=== PATIENT | female | born 1995 | race Native Hawaiian/Other Pacific Islander ===

== ENCOUNTER 2023-05-24 05:53 | Outpatient (CLI) | payer MEDICAID ==
[~2023-05-24] VITALS: Ht 162.6 cm; Wt 73.6 kg
[2023-05-24] MEDS ORDERED: PNV-9 PO (16:19)
== END 2023-05-24 16:39 | disposition home or self-care (01) ==
LOC: PREOP 05:53
PROVIDERS: ATTEND Obstetrics & Gynecology
DX: Z01.818 Encounter for other preprocedural examination (principal)

== ENCOUNTER 2023-05-31 05:36 | Inpatient (IN) | payer MEDICAID ==
[~2023-05-31] VITALS: Ht 160 cm; Wt 75.5 kg
[2023-05-31] VITALS (11 sets, daily range): BP systolic 100–124; BP diastolic 55–78
[~2023-05-31 05:36] MED LIST: PNV-9 PO
[2023-05-31] MEDS ORDERED: ceFAZolin INJECTION 2,000 MG in NS (IVPB) 50 ML 50 ML IV ONE (05:45)
[2023-05-31] MEDS ORDERED: METOCLOPRAMIDE INJ 10 MG/2 ML IV ONE (06:00)
[2023-05-31] MEDS ORDERED: CITRIC ACID/SODIUM CITRATE ORAL SOLN 30 ML PO ONE (06:00)
[2023-05-31] MEDS ORDERED: LACTATED RINGERS 1,000 ML 1,000 ML IV PRN ×2 (06:00)
[2023-05-31] MEDS ORDERED: FAMOTIDINE INJ 20MG/2ML VIAL IV ONE (06:00)
[2023-05-31] MEDS ORDERED: D5 LR 1,000 ML IV SOLN 1,000 ML IV SCH (06:00)
[2023-05-31] MEDS ORDERED: LACTATED RINGERS 1,000 ML 500 ML IV PRN (06:00)
[2023-05-31 06:40] LABS: ALBUMIN 3.1 GM/DL (3.2-4.5); BASOPHILS % (AUTO) 1 % (0-10); EOSINOPHILS # (AUTO) 0.4 10^3/uL (0.0-0.3); EOSINOPHILS % (AUTO) 7 % (0-10); HEMATOCRIT 35 % (35-52); HEMOGLOBIN 11.9 g/dL (11.5-16.0); LYMPHOCYTES # (AUTO) 1.4 10^3/uL (1.0-4.0); LYMPHOCYTES % (AUTO) 24 % (12-44); MEAN CORPUSCULAR HEMOGLOBIN 30 pg (25-34); MEAN CORPUSCULAR HGB CONC 34 g/dL (32-36); MEAN CORPUSCULAR VOLUME 89 fL (80-99); MEAN PLATELET VOLUME 9.2 fL (9.0-12.2); MONOCYTES # (AUTO) 0.4 10^3/uL (0.0-1.0); MONOCYTES % (AUTO) 7 % (0-12); NEUTROPHILS # (AUTO) 3.5 10^3/uL (1.8-7.8); NEUTROPHILS % (AUTO) 60 % (42-75); PLATELET COUNT 205 10^3/uL (130-400); POTASSIUM 3.8 MMOL/L (3.6-5.0); WHITE BLOOD COUNT 5.9 10^3/uL (4.3-11.0)
[2023-05-31 06:41] LABS: CALCIUM 8.1 MG/DL (8.5-10.1)
[2023-05-31 06:42] LABS: TOTAL PROTEIN 6.7 GM/DL (6.4-8.2)
[2023-05-31 06:44] LABS: BILIRUBIN,TOTAL 0.3 MG/DL (0.1-1.0)
[2023-05-31 06:46] LABS: CREATININE SERUM 0.61 MG/DL (0.60-1.30)
[2023-05-31] MEDS ORDERED: fentaNYL INJECTION 100 MCG/2 ML VIAL ONE (07:02)
--- NOTE | 2023-05-31 07:02 | History & Physical-OB ---
OB - Chief Complaint & HPI Date/Time Date of Admission: Date of Admission: May 31, 2023 at 05:36 Date seen by a Provider: May 31, 2023 Time Seen by a Provider: 07:01 Chief Complaint/History OB-Reason for Admission/Chief: Section Hx : 3 Hx Para: 2 Expected Date of Delivery: Jun 07, 2023 Gestational Age in Weeks: 39 Gestational Age in Days: 0 Indication for : desires repeat Admission Nurse Assessment Rev: Yes Allergies and Home Medications Allergies Coded Allergies: No Known Drug Allergies (Unverified , 05/24/23) Patient Home Medication List Home Medication List Reviewed: Yes Pnv 119/Iron Fum/Folic Acid ( 19 Tablet) 29 Mg Iron-1 Mg Tablet, 1 EACH PO DAILY, (Reported) Entered as Reported by: Vesta Howe on 05/24/23 1619 OB - History Hx of Present Care: Yes Ultrasounds: Normal mid trimester US Obstetrical Complications: None Medical Complications: None Patient Past Medical History nc Immunizations Influenza Vaccine Up-to-Date: No; Not Current Hepatitis A: No Hepatitis B: No OB - Admission Exam Physical Exam Vitals: Vital Signs 05/31/23 06:01 Temp 36.7 Pulse 77 Resp 20 Pulse Ox 100 O2 Delivery Room Air HEENT: NCAT Heart: Rhythm Normal Lungs: Clear Abdomen: Gravid Heart Rate: 130's Accelerations: Accelerations Present Decelerations: No Decelerations Short Term Variability: Present Labs Laboratory Tests Test 05/31/23 06:05 Range/Units White Blood Count 5.9 4.3-11.0 10^3/uL Red Blood Count 3.99 3.80-5.11 10^6/uL Hemoglobin 11.9 11.5-16.0 g/dL Hematocrit 35 35-52 % Mean Corpuscular Volume 89 80-99 fL Mean Corpuscular Hemoglobin 30 25-34 pg Mean Corpuscular Hemoglobin Concent 34 32-36 g/dL Red Cell Distribution Width 12.6 10.0-14.5 % Platelet Count 205 130-400 10^3/uL Mean Platelet Volume 9.2 9.0-12.2 fL Immature Granulocyte % (Auto) 1 % Neutrophils (%) (Auto) 60 42-75 % Lymphocytes (%) (Auto) 24 12-44 % Monocytes (%) (Auto) 7 0-12 % Eosinophils (%) (Auto) 7 0-10 % Basophils (%) (Auto) 1 0-10 % Neutrophils # (Auto) 3.5 1.8-7.8 10^3/uL Lymphocytes # (Auto) 1.4 1.0-4.0 10^3/uL Monocytes # (Auto) 0.4 0.0-1.0 10^3/uL Eosinophils # (Auto) 0.4 H 0.0-0.3 10^3/uL Basophils # (Auto) 0.0 0.0-0.1 10^3/uL Immature Granulocyte # (Auto) 0.1 0.0-0.1 10^3/uL Sodium Level 136 135-145 MMOL/L Potassium Level 3.8 3.6-5.0 MMOL/L Chloride Level 110 H 98-107 MMOL/L Carbon Dioxide Level 18 L 21-32 MMOL/L Anion Gap 8 5-14 MMOL/L Blood Urea Nitrogen 7 7-18 MG/DL Creatinine 0.61 0.60-1.30 MG/DL Estimat Glomerular Filtration Rate 124 BUN/Creatinine Ratio 11 Glucose Level 74 70-105 MG/DL Calcium Level 8.1 L 8.5-10.1 MG/DL Corrected Calcium 8.8 8.5-10.1 MG/DL Total Bilirubin 0.3 0.1-1.0 MG/DL Aspartate Amino Transf (AST/SGOT) 19 5-34 U/L Alanine Aminotransferase (ALT/SGPT) 16 0-55 U/L Alkaline Phosphatase 137 H 40-136 U/L Total Protein 6.7 6.4-8.2 GM/DL Albumin 3.1 L 3.2-4.5 GM/DL OB - Assessment/Plan/Diagnosis Assessment Assessment: section Admission Dx 27 yo @ 39 weeks Previous Admission Status: Inpatient Order (span 2 midnights) Reason for Inpatient Admission: RCS Plan Plan: Section ADNELLE JOHNSON DO May 31, 2023 07:02
--- NOTE | 2023-05-31 07:08 | Discharge Inst-Women's Service ---
Discharge Inst-Women's Serv Depart Medication/Instructions New, Converted or Re-Newed RX: Transmitted to Pharmacy Final Diagnosis POD 2 RLTCS Problems Reviewed?: Yes Consults/Follow Up Additional Follow Up: Yes Orders/Referrals Dr. Sesay in 7-10 days and in [address] Gomez Activity Activity: Activity as Tolerated Driving Instructions: No Driving for 1 Week NO SMOKING: NO SMOKING Nothing Inside Vagina: No Douching, No [place], No Tampons Diet Discharge Diet: No Restrictions Symptoms to Report to : Bleeding Excessive, Pain Increased, Fever Over 101 Degrees F, Vaginal Bleeding Increase, Questions/Concerns For Any Problems or Questions: Contact Your Physician Skin/Wound Care Infection Signs and Symptoms: Increased Redness, Foul Odor of Wound, Increased Drainage, Skin Itchy or Has a Rash, Increased Swelling, Temperature Above 101 F Operative Area Clean and Dry: Keep Incision Clean/Dry Stitches/Gloria/Dermabond: Dermabond, Care of Stitches Bathing Instructions: DANELLE Justice DO May 31, 2023 07:08
[2023-05-31] MEDS ORDERED: IBUP-844 PO (07:09)
[2023-05-31] MEDS ORDERED: DOCU100C37 PO (07:09)
[2023-05-31] MEDS ORDERED: ACHD5005 PO (07:09)
[2023-05-31] MEDS ORDERED: MEASLES, MUMPS, RUBELLA VACCINE (MMR) SC SCH (07:15)
[2023-05-31] MEDS ORDERED: NALOXONE 0.4 MG/ML 1 ML VIAL IV PRN ×2 (07:15→09:15)
[2023-05-31] MEDS ORDERED: Tetanus/Diphtheria/Pertussis (Acell) ADULT Vaccine 0.5 ML IM SCH (07:15)
[2023-05-31] MEDS ORDERED: ONDANSETRON INJECTION 4 MG/2 ML (SDV) IVP PRN (07:15)
[2023-05-31] MEDS ORDERED: [UNRECOGNIZED DRUG - OTHER] ONE (07:51)
[2023-05-31] MEDS ORDERED: DEXT ONE (07:51)
[2023-05-31] MEDS: OXYTOCIN DRIP PRE-MIX 500 ML IV SCH ×2 (08:00→08:45)
[2023-05-31] MEDS ORDERED: ROPIVACAINE 5 MG/ML 30ML VIAL ONE (08:03)
[2023-05-31] MEDS ORDERED: OXYTOCIN DRIP PRE-MIX 500 ML IV ONE (08:08)
[2023-05-31] MEDS ORDERED: PHENYLEPHRINE 100 MCG/ML 10 ML (ANESTHESIA) SYR ONE (08:08)
[2023-05-31] MEDS ORDERED: ONDANSETRON INJECTION 4 MG/2 ML (SDV) ONE (08:30)
[2023-05-31] MEDS ORDERED: diphenhydrAMINE INJ 50 MG/ML VIAL IV PRN (09:15)
[2023-05-31] MEDS ORDERED: ONDANSETRON INJECTION 4 MG/2 ML (SDV) IV PRN (09:15)
[2023-05-31] MEDS: KETOROLAC INJ 30 MG/ML VIAL IV SCH ×3 (09:20→23:38)
[2023-05-31] MEDS: HYDROcodone/ACETAMINOPHEN 5 MG/325 MG TABLET PO PRN ×2 (11:45→22:17)
[2023-05-31] MEDS ORDERED: CATHETER FLUSH 10 ML SYR IV SCH (14:00)
--- NOTE | 2023-05-31 14:29 | OPERATIVE REPORT ---
PREOPERATIVE DIAGNOSES: 1. A 27-year-old at 39 weeks' gestation. 2. Previous section. POSTOPERATIVE DIAGNOSES: 1. A 27-year-old at 39 weeks' gestation. 2. Previous section. PROCEDURE: Repeat low transverse section. SURGEON: Aaron Johnson DO ANESTHESIA: spinal. ESTIMATED BLOOD LOSS: 500 mL URINE OUTPUT: 250 mL clear at the end of the procedure. FLUIDS: 1000 mL lactated Ringer's solution. FINDINGS: A live male weighing 7 pounds 5 ounces, Apgars of 8 and 9. Grossly normal appearing uterus, bilateral fallopian tubes and ovaries. SPECIMEN SENT: None. INDICATIONS FOR PROCEDURE: This is a 27-year-old female. The patient had sought care with Dr. Gomez at the [facility]. She denied any concerns with her . None were reported in her labs other than need for repeat . Risks of procedure discussed with the patient in detail including risk of bleeding, infection, damage in surrounding structures including but not limited to bowel, bladder, ureter, kidneys, possible need for reoperation, postoperative complications that may occur recovery timeframe, risk from anesthesia and even . After everything was discussed with the patient in detail, she was agreeable to proceed. Consent was obtained, the patient was taken to the operating room. OPERATIVE REPORT IN DETAIL: Once in the operating room, a spinal analgesia was administered and found to be adequate, was placed in supine position with leftward tilt, prepped and draped in normal sterile fashion. A timeout was performed. Anesthesia was tested. I then make a Pfannenstiel skin incision through previous existing scar using knife and carried down to the underlying fascia using Bovie cautery. The fascial incision extended laterally using Bovie cautery. Superior aspect of the fascial incision was then grasped with James clamps, tented up and dissected off the underlying rectus muscles. The inferior aspect of the fascial incision was then grasped with James clamps, tented up and dissected off the underlying rectus muscles. Rectus muscles were dissected down the midline using sharp dissection, which exposed the peritoneum, which I entered bluntly, extended using blunt traction. Heladio ring retractor was placed in the peritoneal incision, which offers excellent lateral sidewall retraction. I identified the lower uterine segment was found to be thinned out and make a low transverse incision to the vesicouterine peritoneum and bluntly dissected off the lower uterine segment, creating a bladder flap. I then proceeded my myotomy until membranes were visualized, at which point I extended uterine incision laterally and superiorly using bandage scissors. Amniotomy was performed in the process of doing this, clear fluid was noted. The infant was found in the vertex presentation. With gentle fundal pressure, the infant's head elevated up the incision where delivered through the incision, the nares and oropharynx were bulb suctioned. Anterior and posterior shoulders were delivered. Infant was brought to the operative field where cord was duly clamped and cut and infant was handed off to waiting nurses in attendance. Cord blood was collected. Three-vessel cord intact placenta was delivered spontaneously thereafter. IV Pitocin was initiated to facilitate uterine contraction. Uterine fundus confirmed by manual massage. The uterus was then exteriorized and cleared of all endometrial clots and debris. I then proceeded with closing the uterine incision using 0 Vicryl suture in a running locked fashion. Second layer of imbricating 0 Monocryl was placed. Excellent hemostasis was noted after doing this. I then placed the uterus back and copiously irrigated the pelvis using normal saline. Once again, there was no active bleeding noted from any of my dissection planes. I placed Interceed antiadhesive over my low transverse incision. I removed the Heladio retractor and then proceeded with closing the peritoneum using 3-0 Vicryl suture in a running fashion. Rectus muscles were reapproximated using 3-0 Vicryl suture interrupted fashion. The fascia was reapproximated using 0 Vicryl suture in a running fashion and the skin reapproximated using 4-0 Monocryl in running subcuticular. Dermabond was applied to incision and sterile dressing with adhesive white tape. The patient tolerated the procedure well and was taken to recovery area in stable condition. Lap and sponge counts were correct at the end of the procedure. Instrument counts correct as well. Two grams of Ancef were given preoperatively for infection prophylaxis. Job ID: [id number] DocumentID: [id number] Dictated Date: 05/31/2023 08:33:55 Design Consultant Date: 05/31/2023 14:27:00 Dictated By: AARON JOHNSON DO
[2023-05-31] MEDS: DOCUSATE SODIUM 100 MG CAPSULE PO SCH (20:28)
[2023-06-01 04:13] VITALS: BP 99/57
[2023-06-01] MEDS: KETOROLAC INJ 30 MG/ML VIAL IV SCH (05:41)
[2023-06-01 05:54] LABS: BASOPHILS % (AUTO) 0 % (0-10); EOSINOPHILS # (AUTO) 0.4 10^3/uL (0.0-0.3); EOSINOPHILS % (AUTO) 5 % (0-10); HEMATOCRIT 28 % (35-52); HEMOGLOBIN 9.2 g/dL (11.5-16.0); LYMPHOCYTES # (AUTO) 1.5 10^3/uL (1.0-4.0); LYMPHOCYTES % (AUTO) 18 % (12-44); MEAN CORPUSCULAR HEMOGLOBIN 30 pg (25-34); MEAN CORPUSCULAR HGB CONC 33 g/dL (32-36); MEAN CORPUSCULAR VOLUME 89 fL (80-99); MONOCYTES # (AUTO) 0.6 10^3/uL (0.0-1.0); MONOCYTES % (AUTO) 7 % (0-12); NEUTROPHILS # (AUTO) 5.8 10^3/uL (1.8-7.8); NEUTROPHILS % (AUTO) 69 % (42-75); PLATELET COUNT 179 10^3/uL (130-400); WHITE BLOOD COUNT 8.4 10^3/uL (4.3-11.0)
[2023-06-01] MEDS ORDERED: IBUPROFEN 600 MG TABLET PO SCH (07:15)
--- NOTE | 2023-06-01 09:16 | Short Stay Summary ---
Discharge Summary Hospital Course Final Diagnosis: , 39 weeks Hospital Course Date of Admission: May 31, 2023 at 05:36 Admission Diagnosis : Family Physician/Provider: Sylwia Gomez MD Date of Discharge: 06/01/23 Discharge Diagnosis: Hospital Course: Patient is a at 39 weeks admitted 05/31/23 who underwent uncomplicated repeat productive of viable male AGA. Uncomplicated post-op course. Wanting to go home early on POD #1 and meets criteria for discharge. Will follow up with Dr. Sesay for incision check in 7-10 days, will call for appointment. Labs and Pending Lab Test: Laboratory Tests 06/01/23 05:37: White Blood Count 8.4, Red Blood Count 3.09L, Hemoglobin 9.2#L, Hematocrit 28L, Mean Corpuscular Volume 89, Mean Corpuscular Hemoglobin 30, Mean Corpuscular Hemoglobin Concent 33, Red Cell Distribution Width 12.9, Platelet Count 179, M mabel Platelet Volume 9.0, Immature Granulocyte % (Auto) 1, Neutrophils (%) (Auto) 69, Lymphocytes (%) (Auto) 18, Monocytes (%) (Auto) 7, Eosinophils (%) (Auto) 5, Basophils (%) (Auto) 0, Neutrophils # (Auto) 5.8, Lymphocytes # (Auto) 1.5, Monocytes # (Auto) 0.6, Eosinophils # (Auto) 0.4H, Basophils # (Auto) 0.0, Immature Granulocyte # (Auto) 0.1 Microbiology 05/31/23 MRSA Screen - Final, Complete MRSA not isolated Home Meds Active Docusate Sodium 100 Mg Capsule 100 Mg PO BID PRN Hydrocodone-Acetamin 5-325 mg (Hydrocodone/Acetaminophen) 5 Mg-325 Mg Tablet 1-2 Ea PO Q6HR PRN Ibu (Ibuprofen) 600 Mg Tablet 600 Mg PO Q6H Reported 19 Tablet (Pnv 119/Iron Fum/Folic Acid) 29 Mg Iron-1 Mg Tablet 1 Each PO DAILY Assessment/Pt Instructions Post-op Day 1 doing well. See post instruction sheet. Discharge Instructions Discharge Diet: No Restrictions Activity as Tolerated: Yes Discharge Physical Examination General Appearance: Alert, Oriented X3, Cooperative, No Acute Distress Abdominal: Normal Bowel Sounds, No Tenderness, Other (Uterus firm and NT 6 cm below umbilicus. Incision clean and dry and no erythema) Extremities: No Edema, No Tenderness/Swelling Skin: No Rashes Neuro: Normal Gait Psych/Mental Status: Mental Status NL Allergies: Coded Allergies: No Known Drug Allergies (Unverified , 05/24/23) Discharge Summary Date of Admission May 31, 2023 at 05:36 Date of Discharge 06/01/23 Discharge Date: Jun 01, 2023 Discharge Time: 13:00 Admission Diagnosis 39 weeks Prior Consults/Procedures Procedures Section Discharge Diagnosis 39 Weeks Section CURTIS ANAYA DO Jun 01, 2023 09:15
[2023-06-01 09:52] VITALS: BP 112/62
[2023-06-01] MEDS: DOCUSATE SODIUM 100 MG CAPSULE PO SCH (09:55)
[2023-06-01] MEDS: HYDROcodone/ACETAMINOPHEN 5 MG/325 MG TABLET PO PRN (09:55)
[2023-06-01 14:22] VITALS: BP 102/56
--- NOTE | 2023-06-02 12:53 | Anesthesia-Regional Post-Op ---
Regional Post Op Complications Complications None Follow Up Care/Instructions Patient Instructions None needed. Anesthesia/Patient Condition Patient Discharged. Chart reviewed. no apparent adverse anesthesia problems. ANASTASIA DUFF CRNA Jun 02, 2023 12:53
== END 2023-06-01 14:45 | disposition home or self-care (01) | DRG 788 ==
LOC: LDRP 05:36
PROVIDERS: ADMIT Obstetrics & Gynecology; ATTEND Obstetrics & Gynecology
PROC: 10D00Z1 Extraction of Products of Conception, Low, Open Approach (ICD-10-PCS; principal; 2023-05-31 07:23)
DX: O34.211 Maternal care for low transverse scar from previous cesarean delivery (principal); Z3A.39 39 weeks gestation of pregnancy; Z37.0 Single live birth
CPT/HCPCS: 36415; 80053; 85025; 86780; 86850; 86900; 86901; 87081; 94664